=== PATIENT | female | born 1960 | race Caucasian/White ===

== ENCOUNTER 2019-04-01 19:38 | Observation (INO) ==
[2019-04-01] MEDS ORDERED: METOCLOPRAMIDE 10 MG/2 ML VIAL IV STA (19:57)
[2019-04-01] MEDS ORDERED: diphenhydrAMINE 50 MG/1 ML VIAL IV STA (19:57)
[2019-04-01] MEDS ORDERED: SODIUM CHLORIDE 0.9% 1,000 ML IV STA ×2 (19:57→21:42)
[2019-04-01] MEDS ORDERED: MORPHINE 4 MG/1 ML VIAL IV STA (19:58)
[2019-04-01 20:11] LABS: Basophils # 0.1 10*3/uL (0.0-0.2); Eosinophils # 0.1 10*3/uL (0.0-0.87); Eosinophils % 0.6 % (0.00-10.9); Hematocrit 49.2 VOL% (35.7-47.0); Hemoglobin 16.3 GM/DL (12.0-16.0); Immature Granulocytes % 0.3 %; Immature Granulocytes Absolute 0.03 #; Lymphocytes % 26.1 % (21.3-54.2); Mean Corpuscular HGB Conc 33.1 GM/DL (32-36); Mean Corpuscular Volume 90.3 FL (87-102); Mean Platelet Volume 11.3 FL (9.6-12.0); Monocytes % 4.8 % (1.7-12.7); Neutrophils % 67.2 % (38.7-73.9); Platelet Count 287 T/CUMM (130-400); Red Blood Count 5.45 MC/CUMM (3.8-5.5); Red Cell Distribution Width 12.8 % (9.3-17.3); White Blood Count 11.3 T/CUMM (4-12)
[2019-04-01 20:29] LABS: Albumin 4.4 G/DL (3.4-5.0); Bilirubin,Total 0.5 MG/DL (0.2-1.0); Calcium 9.7 MG/DL (8.5-10.1); Osmolality,Calculated 281.8 MOS/KG (273-304); Total Protein 8.2 G/DL (6.4-8.3)
[2019-04-01 21:17] LABS: Apearance,Urine CLEAR (Clear); Bilirubin,Urine Negative (Negative); Blood, Urine Negative (Negative); Glucose,Urine (UA) >=500 mg/dL (Negative); Ketones,Urine 80 mg/dL (Negative); Mucus,Urine Occasional /LPF (Occasional); Nitrite,Urine Negative (Negative); Protein,Urine Negative; RBC,Urine <1 /HPF (0-4); Squamous Epithelial Cell,Urine Occasional /HPF (0-10); Urine Color Yellow (Yellow); Urine Specific Gravity 1.053 (1.001-1.035); Urine Urobilinogen < 2.0 EU/DL (0.2-1.0)
[2019-04-01 21:43] LABS: Barbiturates Screen,Urine Negative (Negative); Benzodiazepines Screen,Urine Positive (Negative); Cannabinoid Screen,Urine Negative (Negative); Opiate Screen,Urine Positive (Negative); Phencyclidine Screen,Urine Negative (Negative)
[2019-04-01] MEDS ORDERED: DEXTROSE 50% 25 GM/50 ML VIAL IV PRN (22:06)
[2019-04-01] MEDS ORDERED: ONDANSETRON 4 MG/2 ML VIAL IV PRN (22:06)
[2019-04-01] MEDS ORDERED: ACETAMINOPHEN 325 MG TABLET PO PRN (22:06)
[2019-04-01] MEDS ORDERED: GLUCAGON 1 MG VIAL IM PRN (22:06)
[2019-04-01] MEDS ORDERED: MECLIZINE 25 MG TABLET PO PRN (22:15)
[2019-04-02] MEDS: INSULIN REGULAR 100 UNIT/ML SUBCUT SCH ×5 (00:45→21:25)
[2019-04-02] MEDS: ENOXAPARIN 40 MG/0.4 ML SYRINGE SUBCUT SCH ×2 (00:48→22:15)
[2019-04-02 06:48] LABS: Basophils # 0.1 10*3/uL (0.0-0.2); Basophils % 1.2 % (0.0-0.8); Eosinophils # 0.1 10*3/uL (0.0-0.87); Eosinophils % 1.4 % (0.00-10.9); Hematocrit 44.7 VOL% (35.7-47.0); Hemoglobin 14.4 GM/DL (12.0-16.0); Immature Granulocytes % 0.2 %; Immature Granulocytes Absolute 0.02 #; Lymphocytes # 3.8 10*3/uL (1.4-4.0); Mean Corpuscular HGB Conc 32.2 GM/DL (32-36); Mean Corpuscular Volume 93.3 FL (87-102); Monocytes % 6.1 % (1.7-12.7); Neutrophils % 50.1 % (38.7-73.9); Platelet Count 231 T/CUMM (130-400); Red Blood Count 4.79 MC/CUMM (3.8-5.5); Red Cell Distribution Width 12.8 % (9.3-17.3); White Blood Count 9.2 T/CUMM (4-12)
[2019-04-02 07:10] LABS: Albumin 3.8 G/DL (3.4-5.0); Bilirubin,Total 0.6 MG/DL (0.2-1.0); Calcium 8.8 MG/DL (8.5-10.1); Osmolality,Calculated 282.3 MOS/KG (273-304)
[2019-04-02] MEDS: DIAZEPAM 2 MG TABLET PO PRN (08:50)
[2019-04-02] MEDS: LISINOPRIL 5 MG TABLET PO SCH (10:14)
[2019-04-02] MEDS: FUROSEMIDE 20 MG TABLET PO SCH (10:14)
[2019-04-02] MEDS: ROSUVASTATIN 20 MG TABLET PO SCH (10:15)
[2019-04-02] MEDS: PANTOPRAZOLE 40 MG TABLET PO SCH (10:15)
[2019-04-02] MEDS: CITALOPRAM 20 MG TABLET PO SCH (10:15)
[2019-04-02] MEDS: ASPIRIN EC 81 MG TABLET PO SCH (12:10)
[2019-04-03 05:10] LABS: Risk Ratio 4.72; VLDL CHOLESTEROL 66.2 MG/DL
[2019-04-03] MEDS: CITALOPRAM 20 MG TABLET PO SCH (08:22)
[2019-04-03] MEDS: FUROSEMIDE 20 MG TABLET PO SCH (08:23)
[2019-04-03] MEDS: PANTOPRAZOLE 40 MG TABLET PO SCH (08:23)
[2019-04-03] MEDS: ROSUVASTATIN 20 MG TABLET PO SCH (08:23)
[2019-04-03] MEDS: LISINOPRIL 5 MG TABLET PO SCH (08:24)
[2019-04-03] MEDS: ASPIRIN EC 81 MG TABLET PO SCH (08:24)
[2019-04-03] MEDS: DIAZEPAM 2 MG TABLET PO PRN (08:24)
[2019-04-03] MEDS: INSULIN REGULAR 100 UNIT/ML SUBCUT SCH (08:27)
[2019-04-03 09:11] VITALS: BP 92/68
[2019-04-03] MEDS ORDERED: GABAPENTIN 300 MG CAPSULE PO SCH (09:30)
== END 2019-04-03 10:37 | disposition home or self-care (01) ==
LOC: EDUNIT# → EDBD → N.ED 19:38 → N.EDINP 19:38 → SUATTDRO 22:06 → N.4E 22:30
PROVIDERS: ADMIT Internal Medicine; ATTEND Emergency Medicine